=== PATIENT | male | born 1980 | race Caucasian/White ===

== ENCOUNTER 2018-07-18 23:54 | Emergency (ER) | payer SELFPAY ==
[~2018-07-18] VITALS: Ht 172.7 cm; Wt 84.4 kg
[2018-07-18 23:57] VITALS: Ht 172.7 cm; Wt 84.4 kg
--- NOTE | 2018-07-19 00:16 | ERD ---
ER Documentation Chief Complaint Chief Complaint RA; HIGH FROM [place]; PT IS INEBRIATED HPI This is a 38-year-old here for having an edible marijuana brownie. Denies fevers chills nausea vomiting. Denies suicidal homicidal ideation. Denies any other current complaints. ROS All systems reviewed and are negative except as per history of present illness. Physical Exam Vitals Vital Signs Date Temp Pulse Resp B/P (MAP) Pulse Ox O2 O2 Flow FiO2 Time Delivery Rate 07/18/18 98.3 115 19 134/77 100 23:57 (96) Physical Exam Const: No acute distress Head: Atraumatic Eyes: Normal Conjunctiva ENT: Normal External Ears, Nose and Mouth. Neck: Full range of motion. No meningismus. Resp: Clear to auscultation bilaterally Cardio: Regular rate and rhythm, no murmurs Abd: Soft, non tender, non distended. Normal bowel sounds Skin: No petechiae or rashes Back: No midline or flank tenderness Ext: No cyanosis, or edema Neur: Awake and alert Psych: Normal Mood and Affect Procedures/MDM Medical decision m[age]-year-old male here for marijuana abuse. Advised to stop using marijuana. Departure Diagnosis: Primary Impression: Drug use Additional Impression: Drug abuse Condition: Stable Patient Instructions: Drug Abuse EDUAR RODRIGUEZ Jul 19, 2018 00:16
[2018-07-19 02:01] VITALS: BP 139/75; PULSE 98; RESP 15
[2018-08-05] MEDS ORDERED: LORA-441 PO (04:28)
== END 2018-07-19 02:02 | disposition home or self-care (01) ==
LOC: E/R 23:54
DX: F12.90 Cannabis use, unspecified, uncomplicated (principal)
CPT/HCPCS: 99282